=== PATIENT | female | born 1975 | race Caucasian/White ===

== ENCOUNTER 2016-08-20 08:30 | Inpatient (IN) | payer OTHER ==
[~2016-08-20] VITALS: Ht 167.6 cm; Wt 95.3 kg
[2016-09-02] VITALS (12 sets, daily range): BP systolic 115–140; BP diastolic 74–96
[2016-09-02] MEDS ORDERED: ceFAZolin sod 2 GM in D5W 110 ML IVPB ONE (07:00)
[2016-09-02] MEDS ORDERED: Midazolam 2mg/2ml Inj ONE (08:00)
[2016-09-02] MEDS ORDERED: fentaNYL 100 mcg/2 mL IV ONE (08:00)
[2016-09-02] MEDS ORDERED: Propofol 10mg/ml 100ml btl IV ONE (08:00)
[2016-09-02] MEDS ORDERED: NS Irrig 1000ml ONE (08:00)
[2016-09-02] MEDS ORDERED: Sterile Water Irrig 1000ml IRRIG ONE (08:00)
[2016-09-02] MEDS ORDERED: Zemuron 50mg/5ml Inj IV ONE (08:00)
[2016-09-02] MEDS ORDERED: LR 1000ml ONE (08:00)
[2016-09-02] MEDS ORDERED: Thrombin 5000 units TOPIC ONE (09:54)
[2016-09-02] MEDS ORDERED: Bacitracin 50000 Units Vial ONE (09:54)
[2016-09-02] MEDS ORDERED: Bupivacaine w/Epi 0.5% 30ml Vial INJ ONE ×2 (09:54→15:02)
[2016-09-02] MEDS ORDERED: Thrombin 5000 units spray kit TOPIC ONE ×2 (09:54→14:33)
[2016-09-02] MEDS ORDERED: Gelfoam Absorbable 1gm powder pkt TOPIC ONE ×2 (09:55→14:33)
[2016-09-02] MEDS ORDERED: PREVACID30 MG ORAL (10:47)
[2016-09-02] MEDS ORDERED: LR 1000ml 1,000 ML IVLG SCH (11:57)
[2016-09-02] MEDS ORDERED: LORazepam Inj 2mg/ml 1ml IV PRN (12:00)
[2016-09-02] MEDS ORDERED: DiphenhydrAMINE 50mg/ml Inj IVP PRN (12:00)
[2016-09-02] MEDS ORDERED: LR 1000ml 1,000 ML IV SCH (12:00)
--- NOTE | 2016-09-02 12:05 | Anethesia Preoperative Eval ---
Anesthesia Pre-op PMH/ROS General Date of Evaluation: Sep 02, 2016 Time of Evaluation: 11:00 Anesthesiologist: Rito ASA Score: ASA 3 Mallampati Score Class I : Soft palate, uvula, fauces, pillars visible Class II: Soft palate, uvula, fauces visible Class III: Soft palate, base of uvula visible Class IV: Only hard plate visible Mallampati Classification: Class II Surgeon: Leslie Diagnosis: Discopathy L5-S1 Surgical Procedure: ALIF, PLIF Anesthesia History: other - Headache after surgery on multiple occasions Family History: no anesthesia problems Allergies: Coded Allergies: No Known Allergies (Unverified , 08/30/16) Medications: see eMAR Past Medical History Cardiovascular: Denies: CAD, HTN, VT, arrhythmia, other, valve dz Pulmonary: Denies: COPD, SOHA, asthma, other Gastrointestinal/Genitourinary: Reports: GERD, Denies: CRI, ESRD, other Neurologic/Psychiatric: Reports: other - Migraine HERNANDEZ, Denies: CVA, TIA, dementia, depression/anxiety Endocrine: Denies: DM, hypothyroidism, other, steroids HEENT: Denies: SNOQUALMIE (L), SNOQUALMIE (R), cataract (L), cataract (R), glaucoma, other Hematology/Immune: Reports: anemia, Denies: DVT, bleeding disorder, other Musculoskeletal/Integumentary: Denies: DDD, DJD, OA, RA, edema, other PMH Narrative: GERD, Migraine HERNANDEZ, obesity PSxH Narrative: C/S X3, bilateral upper extremity nerve transposition, knee scope Anesthesia Pre-op Phys. Exam Physician Exam Last Vital Signs Date Time Temp Pulse Resp B/P Pulse Ox O2 Delivery O2 Flow Rate FiO2 09/02/16 10:44 98.2 74 17 132/90 98 Room Air Constitutional: NAD Neurologic: CN 2-12 intact Cardiovascular: RRR, no M/R/G Respiratory: CTA Gastrointestinal: S/NT/ND Airway Exam Mallampati Score: Class II MO: full ROM: full Teeth: intact Anesthesia Pre-op A/P Labs WNL Urine Test Test 09/02/16 10:15 Urine HCG, Qualitative Negative Studies Pre-op Studies: EKG - NSR Risk Assessment & Plan Assessment: Moderately obese female with h/o GERD, anemia and migraine HERNANDEZ here for ALIF and PLIF L5-S1 Plan: GETA, SedLine monitor Status Change Before Surgery: No Pre-Antibiotics Drug: Ancef Given Within 1 Hr of Incision: Yes Time Given: 12:15 MATT NESS M.D. Sep 02, 2016 12:05
[2016-09-02] MEDS ORDERED: Heparin 5000 units/ml inj ONE (12:15)
--- NOTE | 2016-09-02 14:10 | Pre-Procedure Note/Attestation ---
Pre-Procedure Note/Attestation Complete Prior to Procedure Procedure Narrative: ant post fusion l5s1 with decompression Indications for Procedure Pre-Operative Diagnosis: l5s1 discopathy Attestation I attest that I discussed the nature of the procedure; its benefits; risks and complications; and alternatives (and the risks and benefits of such alternatives ), prior to the procedure, with the patient (or the patient's legal hardware supplies sales representative). I attest that, if there was a reasonable possibility of needing a blood transfusion, the patient (or the patient's legal hardware supplies sales representative) was given the [facility] standardized written summary, pursuant to the [place] Blood Safety Act ([place] Health and Safety Code # 1645, as amended). I attest that I re-evaluated the patient just prior to the surgery and that there has been no change in the patient's H&P, except as documented below: HEATHER CLEMENS Sep 02, 2016 14:09
--- NOTE | 2016-09-02 14:13 | Brief Operative Note ---
Immediate Post Operative Note Operative Note Pre-op Diagnosis: l5s1 discopathy Procedure: Ant / post fusion with R laminoforaminotomy L5S1 Post-op Diagnosis: same as pre-op Findings: consistent w/pre-op dx studies Surgeon: maddy Additional Surgeons: sharif Anesthesiologist: alejandro Anesthesia: general Specimen: none Complications: none Condition: stable Fluids: 1500 Estimated Blood Loss: volume - 150 Drains: none Implant(s) used?: Yes - alp[hateck peek cage and plate, ISP fusion device HEATHER CLEMENS Sep 02, 2016 14:13
[2016-09-02] MEDS ORDERED: traMADol 50mg tab ORAL PRN (14:15)
[2016-09-02] MEDS ORDERED: Vancomycin 1gm inj IVPB ONE (15:02)
--- NOTE | 2016-09-02 17:07 | Immediate Post-Op Evaluation ---
Immediate Post-Op Evalulation Immediate Post-Op Evalulation Procedure: ALIF, PLIF L5-S1 Date of Evaluation: Sep 02, 2016 Time of Evaluation: 17:10 IV Fluids: 1650 Estimated Blood Loss: 150 Urinary Output: 300 Blood Pressure Systolic: 115 Blood Pressure Diastolic: 72 Pulse Rate: 78 Respiratory Rate: 13 O2 Sat by Pulse Oximetry: 100 Temperature (Fahrenheit): 98.2 Pain Score (1-10): 0 Nausea: No Vomiting: No Complications No complication Patient Status: reacts, patent, extubated, none Drug: Ancef Time Given: 12:15 MATT NESS M.D. Sep 02, 2016 17:07
[2016-09-02] MEDS: Meperidine 25mg/0.5ml Inj (FOR RIGORS ONLY) IV PRN ×2 (17:16→17:34)
[2016-09-02] MEDS: Hydromorphone 0.5mg/0.5ml inj IVP PRN ×4 (17:21→18:13)
[2016-09-02] MEDS ORDERED: Milk of Magnesia 30ml Ud ORAL PRN (19:00)
[2016-09-02] MEDS ORDERED: HYDROmorphone 1mg/ml Carpuject SUBQ PRN (19:00)
[2016-09-02] MEDS ORDERED: Naloxone 0.4mg/ml Inj IVP PRN (19:00)
[2016-09-02] MEDS ORDERED: Norco 5mg/325mg tab ORAL PRN (19:00)
[2016-09-02] MEDS ORDERED: HYDROmorphone 1mg/ml Carpuject IVP PRN (19:00)
[2016-09-02] MEDS ORDERED: D5 1/2NS 1,000 ML IV SCH (19:00)
[2016-09-02] MEDS ORDERED: Norco 7.5mg/325mg tab ORAL PRN ×2 (19:00)
[2016-09-02] MEDS ORDERED: Metoclopramide 10mg/2ml Inj IVP PRN (19:00)
[2016-09-02] MEDS: ceFAZolin sod 1 GM in D5W 55 ML IV SCH (19:39)
[2016-09-02] MEDS: Pericolace tab ORAL SCH (20:00)
[2016-09-02] MEDS ORDERED: Dronabinol 2.5mg Cap ORAL ONE (20:30)
[2016-09-02] MEDS: Docusate 100mg cap ORAL SCH (20:34)
[2016-09-02] MEDS ORDERED: Chloraseptic Spray 20mL Bottle ORAL PRN (21:00)
[2016-09-02] MEDS: D5 1/2NS 1,000 ML IV SCH (21:04)
[2016-09-02] MEDS: Dronabinol 2.5mg Cap ORAL SCH (22:00)
--- NOTE | 2016-09-02 22:01 | Operative Note - Dictated ---
DATE OF OPERATION: 09/02/2016 OPERATION: 1. Muscle sparing anterior abdominal retroperitoneal approach for anterior lumbar interbody fusion. 2. Plastic closure repair of abdominal wound. CO-SURGEONS: 1. Dev Biggs M.D. 2. Evens Nelson M.D. ANESTHESIA: General. PREOPERATIVE DIAGNOSIS: Discopathy L5-S1. POSTOPERATIVE DIAGNOSIS: Discopathy L5-S1. PROCEDURE: Prior to surgery, the patient had received at her home my separate informed consent form, which introduced me and explained my role in the approach for the anterior lumbar spine surgery. It also outlined the possible risks and complications, including, but not limited to hemorrhage, need for blood transfusions, wound infection, bowel or ureter injury, arterial or venous injury or thrombosis, and remote chance of , etc. The patient read the form, signed it and brought it back to the hospital with her today. In addition, I telephoned the patient where the procedure was discussed. Today, she was seen in the preoperative holding area with the content of the form were again reviewed and any further questions were answered. She was shown the site of the incision. She had palpable bilateral dorsalis pedis pulses. That consent was signed once again with a nurse witness and signature as well and then placed into the chart. She fully understood and wished to proceed. A preoperative vascular surgery consultation report was dictated. The patient was taken into the operating room and placed in a supine position. Using an endotracheal tube, she was placed under general anesthesia without difficulty. Her abdomen was prepped and draped in the usual sterile manner. An appropriate time-out was obtained. A transverse incision was made in the left lower quadrant from the midline and carried down through the subcutaneous tissues down to the rectus fascia. Hemostasis was achieved using electrocautery. A transverse incision was made in the anterior rectus fascia, which was then elevated, caudad and cephalad from the underlying muscle. This would allow for retraction of the rectus muscle laterally later in the case noted to obtain direct anterior-posterior approach to the anterior surface of the spine. The inferior epigastric vessels were identified and preserved. The posterior fascia was then incised and carefully from the peritoneum. Laterally, the retroperitoneal space was entered down to the left psoas muscle. The left ureter was identified and protected as it was mobilized with the peritoneum more medially into the left iliac artery was identified. Deep self-retaining retractors such as Stacy and Bookwalter were utilized to hold the abdominal wall and peritoneal contents in place while further dissection was carried out. Careful blunt dissection was begun below the bifurcation of the iliac vessels with several medial branches of the iliac vein were taken between hemoclips and transected. The middle sacral artery was taken between hemoclips and transected. Careful blunt dissection was carried out to preserve the sympathetic chains laterally and then utilize to expose the anterior surface of the multiple vertebral bodies intervening disc space. Several malleable retractor blades were now placed in all quadrants with the rectus muscle now retracted laterally, which allowed exposure and direct anterior-posterior approach to the anterior surface of the spine. A needle was inserted into the appropriate disc space and an x-ray was taken to verify the exposure. The spine surgeon then proceeded to perform diskectomy and fusion, which would be dictated in a separate report by the spine surgeon Dr. Nelson. Antibiotic irrigation had been carried out. The malleable retractors were removed. The integrity of the iliac vessels were then checked to make sure that there was no tear or thrombosis of the vein and that there was adequate flow through the artery with no evidence of spasm or thrombosis. A further check for hemostasis was made and the integrity of the ureter was verified. The peritoneum was allowed to return to its anatomical location and then the anterior rectus sheath approximated using continuous running suture of #1 Vicryl. The subcutaneous tissues were irrigated using dilute Betadine solution as well as antibiotic solution. Hemostasis noted to be achieved. Plastic closure repair of the abdominal wound was continued using 2-0 Vicryl followed by skin approximation using continuous subcuticular suture of 3-0 Monocryl. Steri-Strips were applied. Telfa OpSite dressings were applied. The sponge, pad, needle and instrument counts reported as correct. Estimated blood loss was less than 50 mL. There were no complications during this part of procedure. At completion of this part of the procedure, the patient had maintenance of strong palpable bilateral dorsalis pedis pulses and the pulse oximeter registered 100% on the left foot. The patient will remain in the operating room to undergo posterior surgery by the spine surgeon. Dev Biggs M.D. DR: DANIEL JOB#: [id number] CC:
[2016-09-02] MEDS: HYDROmorphone 1mg/ml Carpuject SUBQ PRN (22:52)
--- NOTE | 2016-09-02 23:15 | Consultation ---
DATE OF CONSULTATION: 09/02/2016 CONSULTING PHYSICIAN: ATTENDING PHYSICIAN: REFERRING PHYSICIAN: HISTORY OF PRESENT ILLNESS: The patient is a 41-year-old female, who was admitted to undergo anterior lumbar interbody fusion of L5-S1 as determined by her spine surgeon, . Prior to today, the patient had received at her home my separate informed consent form which introduced me and explained my role in the approach for the anterior lumbar spine surgery. It also outlined, the possible risks and complications, including but not limited to hemorrhage, need for blood transfusions, wound infection, bowel or ureter injury, arterial or venous injury or thrombosis, and the remote chance of , etc. The patient read the form, signed it and brought her back to the hospital with her today. In addition, I telephoned the patient where the procedure was discussed. Today, she was seen in the preoperative holding area with the contents of the form were again reviewed and any further questions were answered. She was shown the site of the incision. She had palpable bilateral dorsalis pedis pulses. She was 5 feet 6 inches tall, weighing approximately 215 pounds giving her a BMI of 34. Her hematocrit was 32 with a platelet count of 380,000. Her INR was 1.0 with a PTT of 25 seconds. That consent was signed once again with a nurse witness and signature as well and then placed into the chart. She fully understood and wished to proceed. There were no contraindications and we would proceed with the proposed operation. Dev Biggs M.D. DR: CARIDAD JOB#: [id number] CC:
[2016-09-03] VITALS: BP 125/87
--- NOTE | 2016-09-03 00:15 | Operative Note - Dictated ---
DATE OF OPERATION: 09/02/2016 SURGEON: Evens Nelson M.D. JACKSPOOLER: None. ANESTHESIA: General endotracheal anesthesia. ANESTHESIOLOGISTS: Clayton Veras M.D. PREOPERATIVE DIAGNOSES: 1. Discopathy L5-S1 with lower extremity radiculopathy, primarily right side. 2. Status post anterior lumbar interbody fusion with decompression. POSTOPERATIVE DIAGNOSES: 1. Discopathy L5-S1 with lower extremity radiculopathy, primarily right side. 2. Status post anterior lumbar interbody fusion with decompression. PROCEDURES: 1. Right-sided hemilaminectomy keyhole foraminotomy L5-S1. 2. Interspinous nonsegmental fusion using dual lamina ISP fixation system. 3. Use of local autograft as well as a segment fused bone graft substitute. 4. Use of fluoroscopy. 5. Neurodiagnostic monitoring. 6. Use of operating microscope. ESTIMATED BLOOD LOSS: Less than 100. COMPLICATIONS: None. DRAINS: Hemovac both supra and infrafascial x1 place. INDICATIONS: The patient is a very pleasant woman with fairly intractable back pain. After having failed conservative care, surgical intervention was recommended. She had undergone an anterior interbody fusion, but did require posterolateral decompression and fusion on the right side, which was performed in a staged fashion same day. RISK NOTE: The patient was explained in detail the risks and benefits of surgery to include, but not be limited to, those of bleeding, infection, damage to nerves, muscles, tendons, anesthetic risk, allergic reaction, aspiration, and possibly . The patient understood and wished to proceed. OPERATIVE PROCEDURE IN DETAIL: Under the benefits of general anesthesia, the patient was turned prone onto a Luis Enrique frame. The back was prepped and draped in the usual sterile fashion after all bony prominences were well padded. The fluoroscope was brought in place and the L5-S1 level was marked out. Incision was then carried out using a scalpel blade from spinous process of L5 through S1 after the skin was infiltrated with Marcaine 0.25% with epinephrine. Subperiosteal dissection was carried out bilaterally at L5-S1 and radiographically confirmed. Self-retaining retractors were put into place. First, the facet joints on the left side was identified and using a high-speed drill, a partial facetectomy was performed and decortication of the facet joint was achieved. Copious irrigation was performed. Bone graft locally was used to pack into the facet joints and an additional segment fuse was inserted. This area was packed off. Attention was then turned onto her right side and under microscopic visualization, hemilaminectomy was performed of the leading edge of the lamina of L5 and superior edge of S1. Ligamentum flavum was removed in a piecemeal fashion. The dural sac was noted to be moderately compressed, but had good pulsations once the decompression was achieved. At this time, the bipolar was used to cauterize the epidural vessels and lysis of the lateral recess and nerve roots was achieved, which was fully decompressed at this point. Copious irrigation was then performed. Once satisfied with the decompression, the interspinous ligament between L5-S1 was then resected and the leading edge of the bone at L5 and S1 spinous processes were decorticated. The appropriate sized 8 mm interspinous device was then inserted through the left side and subsequently engaged on the right side with the right-sided laminar wing. Once this was achieved, this was torqued to the appropriate level and all screws were then fastened. Excellent fixation was achieved. Additional bone graft was then placed as an onlay along the lamina of L5 and S1. At this juncture, copious irrigation was performed. Decision was made to close. Medium-size Hemovac drain was placed deep to the fascia. Fascia was repaired using #1 Vicryl [id number] sutures. The suprafascial irrigation was then performed. Medium-sized Hemovac drain was placed suprafascially, subcutaneous closure using 2-0 Vicryl, Dermabond was applied, and at time of this dictation, the patient was turned onto her back, awakened, and extubated. Doing well and able to move her toes. Sponge and needle counts were correct. Neurodiagnostic monitoring remained stable throughout. Evens Prosper Nelson DR: JOSSE JOB#: [id number] CC:
--- NOTE | 2016-09-03 01:00 | Consultation ---
DATE OF CONSULTATION: 09/02/2016 REFERRING PHYSICIAN: Evens Nelson M.D. REASON FOR CONSULTATION: Acute pain consult. Dear Dr. Evens Nelson, Thank you kindly for consulting me to evaluate and render an opinion as to how to proceed in the management of the patient's acute postoperative lumbar spine pain after extensive lumbar spine fusion surgery with instrumentation via the anterior-approach and posterior-approach. The patient is a 41-year-old obese woman, who injured her back after a slip and fall accident. She failed conservative treatment and required lumbar spine fusion surgery today, she complained of a severe postoperative discomfort and consulted me for acute pain consultation. I saw the patient at bedside where I performed a detailed history and physical examination. I discussed the case in detail with yourself, Dr. Nelson along with the floor nurse RNDev and the hospital pharmacist. I performed a detailed History and Physical examination. I reviewed the medical record in detail. PAST MEDICAL HISTORY: 1. Acute postoperative lumbar spine pain, status post anterior-approach and posterior-approach lumbar spine fusion surgery with instrumentation by Dr. Evens Nelson in August 2016. 2. Slip and fall accident. 3. Moderate obesity. 4. GERD. 5. Migraine headaches. 6. Exercise-induced asthma. PAST SURGICAL HISTORY: 1. surgery 2008. 2. Bilateral arm nerve transplant. 3. Right hand cyst removal and right wrist carpal tunnel surgery around 2009. MEDICATIONS AT HOME: [place], Soma, Prevacid, Excedrin, and albuterol. ALLERGIES: No known drug allergies. SOCIAL HISTORY: The patient lives with her at home. She denies tobacco usage, but she does use medical marijuana for pain control. She denies significant alcohol usage. FAMILY HISTORY: Diabetes, cerebral vascular disease, coronary artery disease, and hypertension. REVIEW OF SYSTEMS: Per Dr. Pete Mart. PHYSICAL EXAMINATION: GENERAL: Age 41. Height 5 feet 5 inches. Weight 98 kg. Body mass index 36. VITAL SIGNS: Pain level 7/10 on the visual analog pain scale. Afebrile, pulse 95, respirations 14, blood pressure 140/91, and oxygen saturation 100% on supplemental nasal cannula oxygen. HEENT: Normocephalic and atraumatic. No Alvarez's palsy. No Luciana syndrome. Extraocular muscles intact. Pupils are equal, round, and and accommodative. No thyromegaly. CHEST: She is clear to auscultation bilaterally. No wheezes, rales, rhonchi, or accessory muscles noted. BREASTS: Deferred to attending physician. GENITOURINARY: Deferred to attending physician. ABDOMEN: Obese. Absent bowel sounds. Tender by the incision area or with deep breathing. The patient appears non-toxic. EXTREMITIES: Upper extremities with tattoos. Basurto catheter in place. A detailed neurologic exam per Dr. Nelson. Grossly 5/5 dorsiflexion and 5/5 plantar flexion, bilateral lower extremities. NEUROLOGIC: Straight leg raising is deferred secondary to pain. LABORATORY STUDIES: From 09/02/2016 shows test negative. MRI lumbar spine dated 06/25/2016, impression L5-S1 with a [id number] bilateral facet degenerative changes, spxhtgtz-ck-rspzve disk space narrowing, moderate degenerative endplate changes, broad-based posterior disk osteophyte complex, L4-5 with a minimal retrolisthesis of L4 over L5. A 12 lead EKG shows normal sinus rhythm, ventricular rate 72, no evidence for acute cardiac ischemia. Laboratory studies 08/29/2016 shows sodium 137, potassium 3.7, chloride 105, bicarb 25, BUN 11, creatinine 0.8, glucose 150, calcium 8.7, and phosphorus 3.2. Total protein 7.10. Albumin 2.8. Total bilirubin 0.3. Alkaline phosphatase 48, ALT 11, AST 12, white count 6, hematocrit 32, and platelets 380,000. INR 1.0 and PTT 25. IMPRESSION: 1. Acute postoperative lumbar spine pain, status post anterior-approach and posterior-approach lumbar spine fusion surgery with instrumentation by Dr. Evens Nelson in August 2016. 2. Slip and fall accident. 3. Moderate obesity. 4. Gastroesophageal reflux disease. 5. Migraine headaches. 6. Exercise-induced asthma. TREATMENT AND RECOMMENDATIONS: In order to improve this patient's pain complaints postoperatively to help her begin ambulating on postoperative day #1, I have devised the following analgesic plan. The patient has responded to Dilaudid without significant adverse side effects. She does have mild nausea and therefore I will switch this Dilaudid to subcutaneous dose of 1 mg every three hours p.r.n. severe pain. The subcutaneous route should have left emetogenic side effects versus the intravenous route. Because the patient is accustomed to using medical marijuana for her pain and especially for nighttime discomfort, I will ask for the pharmacy to begin treatment with Marinol 2.5 mg orally every eight hours around the clock. This should help with baseline analgesia along with the breakthrough medications of the subcutaneous Dilaudid that had to be more effective. The patient has responded well in the past to usage of Soma which made available at a dose of 350 mg orally every eight hours for muscle spasms. The patient has tolerated [place] in the past and I have made that available at a dose of hydrocodone 10/325 mg one tablet orally every three hours for mild pain. The patient has a history of headaches and I added Fioricet one tablet orally every eight hours as needed for any headache symptoms. I will empirically place the patient on Protonix 40 mg nightly for GI ulcer prophylaxis along with p.r.n. dose of Mylanta 30 mL every six hours p.r.n. for any GERD symptom exacerbation. We will await improvement of bowel function with evidence of flatus before advancing her diet. The patient already has some mild nausea. The Marinol should be helpful in this respect. Additionally I have made available Zofran 4 mg intravenously every four hours as a first-line antiemetic agent. I have also made available intramuscular Phenergan 12.5 mg every eight hours p.r.n. for refractory nausea symptoms. I have ordered clonidine 0.1 mg in case of any hypertensive episodes and I have added Benadryl 20 mg orally every six hours p.r.n. for any itching symptoms. I will also order a Chloraseptic spray bottle to the bedside to help with any sore throat complaints postoperatively. I will defer DVT prophylaxis to the surgeon. A comprehensive review of the medical record was performed. Records reviewed include multiple preoperative reports from Dr. Nelson and Dr. Pete Mart including laboratory studies, diagnostic testing, and 12 lead EKG and an MRI of lumbar spine. At this point, multiple records were reviewed from today's date of surgery at [facility] including multiple reports from the surgery suite, the pharmacy, the nursing team, and the surgeon, Dr. Nelson. Harrison Zaman M.D. DR: DINORAH JOB#: [id number] CC:
[2016-09-03] MEDS: HYDROmorphone 1mg/ml Carpuject SUBQ PRN ×4 (01:45→20:16)
[2016-09-03] MEDS: D5 1/2NS 1,000 ML IV SCH ×3 (02:03→17:36)
[2016-09-03] MEDS: ceFAZolin sod 1 GM in D5W 55 ML IV SCH ×2 (03:34→11:01)
[2016-09-03 04:00] VITALS: BP 109/76
[2016-09-03] MEDS: Dronabinol 2.5mg Cap ORAL SCH ×3 (05:10→21:33)
[2016-09-03] MEDS ORDERED: Transderm Scop 1.5mg TDERMAL ONE (06:00)
--- NOTE | 2016-09-03 06:15 | Operative Note - Dictated ---
DATE OF OPERATION: 09/02/2016 SURGEON: Evens Nelson M.D. VASCULAR ACCESS SURGEON: Dev Biggs M.D. ANESTHESIOLOGIST: Clayton Abreu M.D. ANESTHESIA TYPE: General endotracheal anesthesia. PREOPERATIVE DIAGNOSIS: Discopathy L5-S1. POSTOPERATIVE DIAGNOSIS: Discopathy L5-S1. PROCEDURE: 1. Wide and radical discectomy through an anterior approach L5-S1 with removal of posterior spur and anterior spur osteophytes as well as placement of interbody fusion device. 2. Anterior instrumentation L5-S1. 3. Use of fluoroscopy. ESTIMATED BLOOD LOSS: Less than 100 mL. COMPLICATIONS: None. FINDINGS: Stable fixation L5-S1. INDICATIONS: The patient is a 41-year-old, who sustained an injury to her back with fairly significant and intractable back pain. We attempted conservative care, which failed. Diskography confirmed pain generator being the L5-S1 level not the L4-L5 level. Surgical intervention was discussed. Based on the patient's body habitus, anterior-posterior fixation was recommended with decompression. The patient elected to proceed. RISK NOTE: The patient was explained in detail risks and benefits of surgery to include, but not be limited to, those of bleeding, infection, damage to nerves, vessels, tendons, anesthetic risk, allergic reaction, aspiration, and possibly . The patient understood and wished to proceed. OPERATIVE PROCEDURE IN DETAIL: The patient was taken to the operative suite. After general endotracheal anesthesia was obtained, she was positioned supine onto a radiolucent slider table. The abdomen was prepped and draped in usual sterile fashion. The anterior retroperitoneal approach was then performed and will be dictated separately by Dr. Biggs. At this point, once the retractors were at the L5-S1 level and the L5-S1 was confirmed radiographically using fluoroscope, incision was made through the anterior annulus resecting the anterior annulus. Endplate strippers and Cathy were inserted to remove the disk material and from the bony endplate. Straight and angled curettes as well as pituitaries were then used to remove the disk material all the way to the posterior osteophytes. The rongeur was used to remove the anterior spur osteophytes. Bulleted retractors/distractors were placed within the disk space up to 11 mm, which allowed for visualization of the posterior aspect of the annulus. Posterior osteophytes were removed. Once satisfied with the decompression both centrally as well as along the lateral recesses, endplate preparation was performed using a rasp. The interbody cage was then chosen and the appropriate sized cage (10 mm x 12 with grease lordotic medium-sized footprint) Alphatec cage was chosen and it was centrally packed with synthetic bone graft material. This was then inserted into the disk space and additional bone graft material was placed at the periphery of the cage. An appropriate size anterior tension band plate was then applied. All 4 screw holes were serially drilled, tapped, and appropriate sized screws were inserted. Once this was fully secured in place, final imaging was obtained demonstrating good overall positioning. Final dictation of closure will be dictated separately by Dr. Biggs. Estimated blood loss minimal. Complications none. Neurodiagnostic monitoring remained stable throughout the procedure. [facility] Prosper Nelson DR: CECI JOB#: [id number] CC:
[2016-09-03 06:34] LABS: BASOPHILS % (AUTO) 0.2 % (0.0-2.0); LYMPHOCYTES % (AUTO) 10.3 % (20.0-45.0); MEAN CORPUSCULAR HGB CONC 31.2 G/DL (32.0-36.0); MEAN CORPUSCULAR VOLUME 83 FL (80-99); MEAN PLATELET VOLUME 6.5 FL (6.5-10.1); MONOCYTES % (AUTO) 5.2 % (1.0-10.0); NEUTROPHILS % (AUTO) 84.3 % (45.0-75.0); PLATELET COUNT 315 K/UL (150-450); RED CELL DISTRIBUTION WIDTH 15.8 % (11.6-14.8); WHITE BLOOD COUNT 12.3 K/UL (4.8-10.8)
[2016-09-03 08:00] VITALS: BP 123/86
[2016-09-03] MEDS: Pericolace tab ORAL SCH ×2 (09:29→17:36)
[2016-09-03] MEDS: Docusate 100mg cap ORAL SCH ×2 (09:29→17:36)
[2016-09-03] MEDS ORDERED: HYDROmorphone 1mg/ml Carpuject SUBQ ONE (09:45)
[2016-09-03] MEDS ORDERED: D5 1/2NS 1000ml IV ONE (10:36)
[2016-09-03] MEDS: Norco 10mg/325mg tab ORAL PRN ×2 (11:01→17:36)
--- NOTE | 2016-09-03 11:16 | Progress Note ---
DATE: 09/03/2016 ACUTE PAIN MANAGEMENT PHYSICIAN PROGRESS NOTE: VITAL SIGNS: Afebrile, pulse 93, respiration 19, blood pressure 109/76, and oxygen saturation 98% on room air. LABORATORY STUDIES: From this morning, 09/03/2016, shows white count 12, hematocrit 30, and platelets 315,000. MEDICATIONS: Medication administration record reviewed. Medications include IV fluids, Colace, Brittaney-Colace, Protonix, Ancef, and Marinol. P.r.n. medications include Narcan, Tylenol, milk of magnesia, Chloraseptic, Benadryl, Soma, Catapres, Dilaudid, [place], Mylanta, Zofran, Phenergan, and Fioricet. I spent over 60 minutes in consultation today. I saw the patient at the bedside. After discussion with the day nurse, JESSA Arroyo, and the overnight nurse, JESSA Méndez. The patient has been progressing on-schedule after extensive lumbar spine fusion surgery. She still is not yet passing flatus after her anterior approach BAETRIZ. She is burping and does state she is hungry. With persistent nausea symptoms despite bolus doses of Zofran and Phenergan, I applied a scopolamine patch to help with refractory nausea. She has been responding well to the oral Marinol along with the breakthrough doses of Soma and subcutaneous Dilaudid. As her nausea improves, I would also titrate-in the oral Mclean pills. She will need a prescription for Mclean and Soma at the time of discharge. I did encourage aggressive use of incentive spirometer. I spoke with the physical therapist. The patient already shows significant pain with log rolling. I have asked the nurse to bolus her with Soma now and I have ordered a 1.5-mg breakthrough dose of Dilaudid x1 one hour after the Soma, to help enable out of bed and ambulation with physical therapy training. We will decide later if the patient is a candidate to remove her Basurto catheter at this time or to continue it in place until she is more ambulatory. The Hemovac drain remains in place. We will follow the output. Overnight, the indwelling lumbar spine drain catheter put out 75 mL. She will continue with sequential compression pneumatic devices for DVT prophylaxis. Overall, the patient is progressing well. We will see how she advances with physical therapy and her bowel function as time moves on. Harrison Zaman M.D. DR: Teresa JOB#: [id number] CC:
[2016-09-03 12:35] VITALS: BP 117/68
--- NOTE | 2016-09-03 13:45 | Orthopedic Spine Progress Note ---
Ortho Spine - Progress Note Subjective Symptoms: c/o post-op back pain, improved - as compared to pre-op Objective Vital Signs: Last 24 Hour Vital Signs Date Time Temp Pulse Resp B/P Pulse Ox O2 Delivery O2 Flow Rate FiO2 09/03/16 12:35 97.0 89 18 117/68 96 Room Air 09/03/16 08:00 98.1 89 18 123/86 97 Room Air 09/03/16 04:00 97.7 93 19 109/76 98 Room Air 09/03/16 00:00 98.0 88 19 125/87 98 Room Air 09/02/16 20:00 97.5 89 19 131/85 96 Room Air 09/02/16 18:40 98.5 09/02/16 18:25 98.5 95 14 140/91 100 Nasal Cannula 3.0 09/02/16 18:10 91 14 129/86 100 Nasal Cannula 3.0 09/02/16 18:04 98.3 09/02/16 17:55 98 14 136/83 100 Nasal Cannula 3.0 09/02/16 17:45 89 21 134/93 100 Nasal Cannula 3.0 09/02/16 17:34 97 23 129/91 100 Nasal Cannula 3.0 09/02/16 17:21 90 16 135/90 100 Nasal Cannula 3.0 09/02/16 17:16 94 19 139/96 100 Nasal Cannula 3.0 09/02/16 17:07 78 13 100 09/02/16 17:05 83 15 129/74 100 Simple Mask 6.0 09/02/16 17:00 80 14 124/78 100 Simple Mask 6.0 09/02/16 16:55 98.2 83 15 115/78 100 Simple Mask 6.0 I&O: Intake and Output 09/02/16 09/03/16 19:00 07:00 Intake Total 2000 ml 1080 ml Output Total 450 ml 1400 ml Balance 1550 ml -320 ml Intake Oral 30 ml IV Total 2000 ml 1050 ml Output Urine Total 300 ml 1325 ml Drainage Total 75 ml Estimated Blood Loss 150 ml # Voids 1 Wound: clean, dry, intact Drains: hemovac Neuro Status: normal Assessment Procedure Performed: Ant / post fusion with R laminoforaminotomy L5S1 Plan Plan: PT, pain management Additional Comments: cont NPO until HEATHER IRVIN Sep 03, 2016 13:45
--- NOTE | 2016-09-03 15:00 | 48 Hour Post Anesthesia Eval ---
Post Anesthesia Evaluation Procedure: ALIF, PLIF L5-S1 Date of Evaluation: Sep 03, 2016 Time of Evaluation: 10:30 Blood Pressure Systolic: 117 0: 68 Pulse Rate: 89 Respiratory Rate: 18 Temperature (Fahrenheit): 97.0 O2 Sat by Pulse Oximetry: 96 Airway: patent Nausea: No Vomiting: No Pain Intensity: 6 If pain is > 6 Comment: Discussed pain management with patient and nurse. Would increase Dilaudid. Hydration Status: adequate Cardiopulmonary Status: Stable Mental Status/LOC: patient returned to baseline Follow-up Care/Observations: As per surgery Post-Anesthesia Complications: No anesthetic complication Follow-up care needed: N/A MATT NESS M.D. Sep 03, 2016 15:00
[2016-09-03 16:00] VITALS: BP 129/75
[2016-09-03 20:00] VITALS: BP 123/81
[2016-09-04] VITALS: BP 117/67
[2016-09-04] MEDS: D5 1/2NS 1,000 ML IV SCH ×5 (00:01→19:42)
[2016-09-04] MEDS: Norco 10mg/325mg tab ORAL PRN ×4 (00:01→21:17)
[2016-09-04 04:00] VITALS: BP 95/60
[2016-09-04] MEDS: Dronabinol 2.5mg Cap ORAL SCH ×3 (05:27→21:17)
[2016-09-04 08:18] VITALS: BP 119/78
[2016-09-04] MEDS: Pericolace tab ORAL SCH ×2 (08:26→17:28)
[2016-09-04] MEDS: Docusate 100mg cap ORAL SCH ×2 (08:26→17:28)
[2016-09-04] MEDS: HYDROmorphone 1mg/ml Carpuject SUBQ PRN (09:41)
[2016-09-04 11:43] VITALS: BP 105/67
[2016-09-04 16:02] VITALS: BP 130/84
--- NOTE | 2016-09-04 17:43 | Orthopedic Spine Progress Note ---
Ortho Spine - Progress Note Subjective Symptoms: c/o post-op back pain, improved - as compared to pre-op, other - still no flatus Objective Vital Signs: Last 24 Hour Vital Signs Date Time Temp Pulse Resp B/P Pulse Ox O2 Delivery O2 Flow Rate FiO2 09/04/16 16:31 97.1 09/04/16 16:02 97.1 86 20 130/84 99 Room Air 09/04/16 11:43 97.8 90 20 105/67 98 Room Air 09/04/16 10:11 98.1 09/04/16 08:18 98.1 67 20 119/78 98 Room Air 09/04/16 04:00 97.9 90 20 95/60 97 Room Air 09/04/16 00:00 98.4 89 19 117/67 98 Room Air 09/03/16 20:00 97.9 106 20 123/81 96 Room Air I&O: Intake and Output 09/03/16 09/04/16 19:00 07:00 Intake Total 1855 ml 1575 ml Output Total 1050 ml 30 ml Balance 805 ml 1545 ml IV Total 1855 ml 1575 ml Output Urine Total 1000 ml Drainage Total 50 ml 30 ml # Voids 3 Wound: clean, intact Drains: none Neuro Status: normal Assessment Procedure Performed: Ant / post fusion with R laminoforaminotomy L5S1 Plan Plan: PT, pain management, discharge plan Additional Comments: still with no flatus. slow to advance diet with poss early HEATHER Hanley Sep 04, 2016 17:43
[2016-09-04 20:00] VITALS: BP 119/69
--- NOTE | 2016-09-04 21:45 | Progress Note ---
DATE: 09/04/2016 ACUTE PAIN MANAGEMENT PHYSICIAN PROGRESS NOTE MEDICATIONS: Medication administration record reviewed. Medications include Tylenol, Fioricet, Mylanta, Soma, Catapres, Benadryl, Colace, Marinol, [place], Dilaudid, milk of magnesia, Demerol, Reglan, Narcan, Zofran, Protonix, Chloraseptic spray, Phenergan, and Brittaney-Colace. LABORATORY AND DIAGNOSTIC DATA: Yesterday CBC 09/03/2016 showed white count 12, hematocrit 30, and platelets 315,000. OBJECTIVE: VITAL SIGNS: Afebrile, pulse 90, respirations 20, blood pressure 105/67, and oxygen saturation 90% on room air. I spent over 60 minutes in consultation today. I saw the patient at bedside with the nurse RN, Betsey. I discussed the case with the charge nurse, JESSA Siegel, who was in communication with the bilingual patient support caseworker to arrange for supplying to home a front wheel walker and a three in one bedside commode. I left the patient a prescription for [place] and Soma pills, which her states that her will drop-off of the local pharmacy for dispensing. I discussed the case in detail with the surgeon, Dr. Nelson. The patient has been progressing well after her extensive lumbar spine fusion surgery. She continues not to have positive flatus yet. However, she is tolerating clear liquids and will continue drinking as tolerated. Personally, I would not recommend to advance her diet and will be on clear liquids until she is passing positive flatus after her anterior lumbar interbody fusion surgery. Surgeon, Dr. Nelson will be evaluating the patient later today as well. Nausea continues to occur, but with less frequency. Scopolamine patch remained in place and she continues with rescue doses of Zofran and Phenergan as necessary. The patient has been tolerating Soma as well as oral [place]. The patient states that one tablet of [place] 10/325 mg has been adequate and I will continue this dosing. She also will continue with doses of 1 mg subcutaneous Dilaudid for severe episodes. The patient has been very compliant using her incentive spirometer. I encouraged continued usage aggressively. The patient also has been ambulating with a front wheel walker, which should help improve bowel function advent. The scheduled Marinol is helping with baseline analgesia. Chloraseptic spray and have been used for sore throat complaints. The patient does not appear to be anxious. She has not had any headache complaints. The patient was placed in the left lateral decubitus position for evaluation and examination of the lumbar spine wound. Wound was . I removed the surgical dressings showing the incision line clean and dry with DuraBond sealant intact. Two lumbar spine drain catheters were in place with the drain hole into release sites clean and dry. I cut the suture holding in both the indwelling lumbar spine drain catheters. Then an end-expiration with Hemovac drains, taken all suction, I personally removed both indwelling lumbar spine drain catheters. Both tips were intact. Alcohol swab was applied to the drain hole site as well as the incision line. Finally, island border gauze dressings were applied without complications. Harrison Zaman M.D. DR: NANCY JOB#: [id number] CC:
[2016-09-05 04:00] VITALS: BP 141/88
[2016-09-05] MEDS: Dronabinol 2.5mg Cap ORAL SCH ×2 (06:24→13:10)
[2016-09-05 08:00] VITALS: BP 117/70
[2016-09-05] MEDS: Pericolace tab ORAL SCH (08:40)
[2016-09-05] MEDS: Docusate 100mg cap ORAL SCH (08:40)
[2016-09-05] MEDS: Norco 10mg/325mg tab ORAL PRN (10:02)
[2016-09-05] MEDS: D5 1/2NS 1,000 ML IV SCH (10:45)
--- NOTE | 2016-09-05 10:45 | Progress Note ---
DATE: 09/05/2016 ACUTE PAIN MANAGEMENT PHYSICIAN PROGRESS NOTE MEDICATIONS: Medication administration record reviewed. Medications include IV fluids, Colace, Brittaney-Colace, Protonix, Marinol, Narcan, Tylenol, milk of magnesia, Chloraseptic spray, Benadryl, Soma, Catapres, Dilaudid, [place], Mylanta, Zofran, Phenergan, and Fioricet. LABORATORY STUDIES: No interval laboratory studies. OBJECTIVE: VITAL SIGNS: Afebrile. Pulse 80, respirations 18, blood pressure 117/70, and oxygen saturation 99% on room air. I spent over 60 minutes in consultation today. I saw the patient at bedside and after discussion with the surgeon, Dr. Nelson and the nurse RN, Violet. The patient still has not yet passed positive flatus. She has mildly distended abdomen which is consistent with the symptoms after anterior lumbar interbody fusion. The patient has been ambulating aggressively and trying to reduce her narcotic usage. She still is using the Marinol around the clock but has dropped of the dosing of the subcutaneous Dilaudid considerably and she has been tolerating the Soma and the [place]. She does have chronic nausea preoperatively and her nausea symptoms remain intermittent. The scopolamine patch remains in place and I have ordered Phenergan suppository as a trial as well as I have left a prescription for outpatient usage. The patient trialed milk of magnesia yesterday, which was then effective. I will dose her with Dulcolax suppository and will hold off on simethicone for now since she continue on Protonix for GI ulcer prophylaxis. I spoke with the overnight nurse, Dev who stated the patient was asking for a prescription for Zofran for outpatient usage. I have left with that prescription. The already filled the prescription for [place] and Soma which I left. The front wheel walker and bedside commode have been already dispensed for home usage. Harrison Zaman M.D. DR: DINORAH JOB#: [id number] CC:
[2016-09-05] MEDS ORDERED: ZOFRAN4 M1 ORAL (11:38)
[2016-09-05] MEDS ORDERED: PHENERGAN25 M1 RECTAL (11:39)
[2016-09-05] MEDS ORDERED: NORCO 10-325 T1 EACH ORAL (11:40)
[2016-09-05] MEDS ORDERED: SOMA350 MG PO (11:41)
[2016-09-05 12:00] VITALS: BP 129/83
[2016-09-05] MEDS ORDERED: D5 1/2NS 1000ml IV ONE (13:45)
--- NOTE | 2016-09-06 21:15 | Discharge Summary 2 SIG ---
DATE OF ADMISSION: 09/02/2016 DATE OF DISCHARGE: 09/05/2016 CO-SURGEON: Dev Biggs M.D. BILINGUAL CUSTOMER SERVICE SPECIALIST: Harrison Zaman M.D. BRIEF HOSPITAL COURSE: The patient is a 41-year-old female, who injured her back after a slip and fall accident. She had failed conservative treatment. On 09/02/2016, she underwent anterior lumbar interbody fusion at L5-S1 by Dr. Evens Nelson and Dr. Dev Biggs. Postoperatively, Dr. Zaman was consulted for pain management, as the patient had postoperative lumbar spine pain and was given Dilaudid, Marinol and Soma. She was placed empirically on Protonix for GI ulcer prophylaxis and Mylanta and was given Zofran p.r.n. for nausea. She had headaches and was given Fioricet. She underwent physical therapy. Diet was eventually advanced. The patient still no flatus, slow to advance diet. She was given Brittaney-Colace. Incision was clean and dry and with Durabond Sealant intact. Lumbar spine drain catheters were eventually removed. Hemovac removed. The patient had been ambulating and narcotic use reduced. She had postop nausea and was given scopolamine patch and Phenergan suppository. The patient was eventually discharged home. She was provided with a front wheel walker and bedside commode prior to discharge. FINAL DIAGNOSES: 1. Discopathy L5-S1 with lower extremity radiculopathy primarily right side. 2. Status post anterior lumbar interbody fusion with decompression. 3. Right-sided hemilaminectomy with keyhole foraminotomy on L5-S1. 4. Intraspinous non-segmental fusion. Evens Nelson M.D. I have been assigned to dictate discharge summary on this account and I was not involved in the patient's management. Cathleen Okeefe N.P. DR: JL/V JOB#: [id number] CC: ANDRE
== END 2016-09-05 13:46 | disposition home or self-care (01) | DRG 455 ==
LOC: SDSOVERFLO 09-02 10:01 → 3E 09-02 18:26 → SDSOVERFLO 09-05 12:46 → 3E 09-05 12:49
PROC: 0ST40ZZ Resection of Lumbosacral Disc, Open Approach (ICD-10-PCS; principal; 2016-09-02 11:30)
PROC: 0SG30JJ Fusion of Lumbosacral Joint with Synthetic Substitute, Posterior Approach, Anterior Column, Open Approach (ICD-10-PCS; principal; 2016-09-02 11:30)
PROC: 0SG30A0 Fusion of Lumbosacral Joint with Interbody Fusion Device, Anterior Approach, Anterior Column, Open Approach (ICD-10-PCS; principal; 2016-09-02 11:30)
DX: M51.17 Intervertebral disc disorders with radiculopathy, lumbosacral region (principal); E66.9 Obesity, unspecified; K21.9 Gastro-esophageal reflux disease without esophagitis; W01.0XXS Fall on same level from slipping, tripping and stumbling without subsequent striking against object, sequela; J45.998 Other asthma; R11.0 Nausea
CPT/HCPCS: 36415; 72020; 76001; 81025; 85025; 86850; 86900; 86901; 87081; 94003; 94150; C9399; J2180; J2250; J2405; J2765